=== PATIENT | male | born 1970 | race Caucasian/White ===

== ENCOUNTER 2018-12-21 08:21 | Emergency (ER) | payer OTHER, SELFPAY ==
[2018-12-21 08:34] VITALS: BP 129/92; PULSE 114; RESP 18; TEMP 36.8; O2SAT 98; BMI 25.7
--- NOTE | 2018-12-21 08:34 | ED_ITS ---
HPI - Arrhythmia/Palpitations General Chief Complaint: Arrhythmia/Palpitations Stated Complaint: POSSIBLY THE FLU AND DEHYDRATED Time Seen by Provider: 12/21/18 08:33 Source: patient Mode of arrival: ambulatory Limitations: no limitations History of Present Illness HPI narrative: Patient became ill 3+ days ago. He developed cough, and fever at that time. He works at a local [employer]. There is a clinic on site. He was sent home to rest and hydrate. He was felt to be dehydrated. He did go home and rest, he says he has been drinking lot of fluids. He also had central chest discomfort while sick and coughing 3 days ago. He has no history of CAD. The cough and fever have resolved. He returned to work today and developed chest discomfort once again. He was seen at the clinic on the [employer] site. He was noted to have a systolic blood pressures in the 80s, but a heart rate of 200 was noticed on the pulse oximetry. The provider there did not have a monitor but assumed he had PSVT. He was treated successfully with Valsalva maneuvers. The patient arrives here with a heart rate of 117. He is normotensive with no chest pain. He has no cough or dyspnea. He is on lisinopril and HCTZ for hyperten mihaela. He has no history of arrhythmia. Related Data Home Medications Medication Instructions Recorded Confirmed amitriptyline 12/21/18 lisinopril-hydrochlorothiazide 12/21/18 Allergies Allergy/AdvReac Type Severity Reaction Status Date / Time No Known Drug Allergies Allergy Verified 12/21/18 08:37 Review of Systems Review of Systems ROS Unobtainable: All systems reviewed & are unremarkable except as noted in HPI and below Constitutional Denies weakness Eyes Denies change in vision, Denies eye discharge and Denies irritation ENT Ears, Nose, Mouth, and Throat: Denies neck pain, Denies disequilibrium and Denies sore throat Cardiovascular Reports chest pain, Reports rapid heart rate, Denies pedal edema, Reports li ghtheadedness, Reports palpitations, Denies dyspnea and Denies orthopnea Respiratory Denies cough, Denies dyspnea and Denies wheezing Gastrointestinal Gastrointestinal: Denies abdominal pain, Denies change in bowel habits, Denies diarrhea, Denies nausea and Denies vomiting Musculoskeletal Denies back pain and Denies neck pain Integumentary/Breasts Denies pruritus, Denies erythema, Denies rash and Denies wounds Neurologic Denies disequilibrium and Denies weakness Endocrine Reports palpitations Allergic/Immunologic Denies wheezing PFSH Medical History HTN (hypertension) (Acute) Headache (Acute) No significant past surgical history (Acute) Social History Smoking Status: Never smoker Social History Smoking Status: Never smoker Exam Initial Vital Signs Initial Vital Signs: Vital Signs Temperature 98.3 F 12/21/18 08:34 Pulse Rate 114 H 12/21/18 08:34 Respiratory Rate 18 12/21/18 08:34 Blood Pressure 129/92 H 12/21/18 08:34 Pulse Oximetry 98 12/21/18 08:34 Const General: cooperative and well developed Nutritional Appearance: well nourished Orientation: alert, awake, oriented x3 and not confused HENMT Head: normocephalic and atraumatic Mouth: oral mucosae normal Throat: posterior oropharynx normal, tonsils normal and uvula midline Eyes General: appearance normal, both eyes and all related structures Eyelids: eyelids normal Conjunctivae: conjunctivae normal Sclera: sclerae normal Pupils: PERRL Neck Neck: No JVD Chest Chest: No crepitus and No tenderness Resp Effort & Inspection: normal respiratory effort, able to speak in complete sentences, no respiratory distress and no use of accessory muscles Auscultation: clear to auscultation bilaterally, no rales, no rhonchi and no wheezes Cardio Rate: tachycardic (Rate 117) Rhythm: regular rhythm Heart Sounds: S1 normal, S2 normal, no click, no gallops, no murmurs and no rubs Pulses: normal peripheral pulses GI Inspection: non-distended Palpation: soft, no hepatosplenomegaly, No guarding, No pulsatile mass and No tender Auscultation: normal bowel sounds Back/Spine/Pelvis Back: No CVA tenderness Cervical Spine: cervical ROM normal and No pain with cervical ROM Thoracic/Lumbar Spine: thoracic and lumbar spine normal to inspection Skin General: no rashes or lesions noted, No jaundice and No petechiae Neuro General: alert, oriented x3, gait normal and no focal motor deficits Speech: speech normal Course Orders Ordered: ED Orders 12/21/18 08:30 Influenza A and B by PCR Rapid Stat 12/21/18 08:45 Basic Metabolic Panel Stat Complete Blood Count AUTO DIFF Stat Magnesium Stat Thyroid Stimulating Hormone Stat Troponin & CK Cardiac Panel Stat 12/21/18 08:52 XR chest 1V Stat EKG-12 Lead Stat 12/21/18 09:20 Lactate (Lactic Acid) Stat Discontinued Medications Sodium Chloride (Normal Saline 0.9%) 1,000 mls @ 1,000 mls/hr IV BOLUS PRN PRN Reason: Fluid replacement Last Infusion: 12/21/18 10:19 Dose: 0 mls/hr Admin: 12/21/18 09:16 Dose: 1,000 mls/hr Vital Signs - 8 hr 12/21/18 08:34 12/21/18 09:00 12/21/18 10:00 Temperature 98.3 F Pulse Rate 114 H 114 H 105 H Respiratory Rate 18 12 18 Blood Pressure 129/92 H Blood Pressure [Left Arm] 119/89 126/83 Pulse Oximetry 98 98 97 12/21/18 10:02 Temperature Pulse Rate 102 H Respiratory Rate 12 Blood Pressure Blood Pressure [Left Arm] 126/83 Pulse Oximetry 97 MDM - Arrhythmia/Palpitations Lab Data Result diagrams: 12/21/18 08:45 12/21/18 08:45 Lab Results 12/21/18 12/21/18 12/21/18 Range/Units 08:30 08:45 08:45 WBC 7.7 (4.5-11.0) X10^3/uL RBC 5.17 (4.5-5.9) X10^6/uL Hgb 15.5 (13.5-17.5) g/dL Hct 44.6 (41-53) % MCV 86.2 (80-100) fL MCH 29.9 (26-34) PG MCHC 34.8 (30-36) % RDW 13.1 (11.6-14.8) % Plt Count 222 (150-400) X10^3/uL Neut % (Auto) 78.9 H (50-75) % Lymph % (Auto) 9.7 L (25-40) % [place] % (Auto) 10.9 (3-14) % Eos % (Auto) 0.3 L (2-4) % Baso % (Auto) 0.2 (0-2) % Neut # (Auto) 6100 (6082-2300) /uL Lymph # (Auto) 700 L (4659-2215) /uL [place] # (Auto) 800 (0-900) /uL Eos # (Auto) 0 (0-450) /uL Baso # (Auto) 0 (0-100) /uL Sodium 134 L (137-145) mmol/L Potassium 3.7 (3.4-5.1) mmol/L Chloride 98 (98-107) mmol/L Carbon Dioxide 25 (22-32) mmol/L BUN 14 (9-20) mg/dL Creatinine 1.10 (0.66-1.25) mg/dL Estimated GFR > 60.0 (>60) mL/min BUN/Creatinine Ratio 12.7 (6-22) Glucose 108 H (70-100) mg/dL Lactate (0.7-2.1) mmol/L Calcium 9.4 (8.4-10.2) mg/dL Magnesium 2.0 (1.6-2.3) mg/dL Total Creatine Kinase 73 (55-170) U/L CK-MB (CK-2) TNP CK-MB (CK-2) Rel Index TNP Troponin I < 0.012 (0.01-0.034) ng/mL TSH (0.47-4.68) uIU/mL Influenza A & B (PCR) Negative (Negative) 12/21/18 12/21/18 Range/Units 08:45 09:20 WBC (4.5-11.0) X10^3/uL RBC (4.5-5.9) X10^6/uL Hgb (13.5-17.5) g/dL Hct (41-53) % MCV (80-100) fL MCH (26-34) PG MCHC (30-36) % RDW (11.6-14.8) % Plt Count (150-400) X10^3/uL Neut % (Auto) (50-75) % Lymph % (Auto) (25-40) % [place] % (Auto) (3-14) % Eos % (Auto) (2-4) % Baso % (Auto) (0-2) % Neut # (Auto) (0139-0846) /uL Lymph # (Auto) (0987-7814) /uL [place] # (Auto) (0-900) /uL Eos # (Auto) (0-450) /uL Baso # (Auto) (0-100) /uL Sodium (137-145) mmol/L Potassium (3.4-5.1) mmol/L Chloride (98-107) mmol/L Carbon Dioxide (22-32) mmol/L BUN (9-20) mg/dL Creatinine (0.66-1.25) mg/dL Estimated GFR (>60) mL/min BUN/Creatinine Ratio (6-22) Glucose (70-100) mg/dL Lactate 0.6 L (0.7-2.1) mmol/L Calcium (8.4-10.2) mg/dL Magnesium (1.6-2.3) mg/dL Total Creatine Kinase (55-170) U/L CK-MB (CK-2) CK-MB (CK-2) Rel Index Troponin I (0.01-0.034) ng/mL TSH 3.66 (0.47-4.68) uIU/mL Influenza A & B (PCR) (Negative) Urine Dip Bedside Urine Glucose Negative Bedside Urine Bilirubin - Negative Bedside Urine Ketone - Negative Urine Specific [place] 1.010 Bedside Urine Occult Blood - Negative Bedside Urine pH 6.5 Bedside Urine Protein +/- 15 Bedside Urine Urobilinogen - Negative Bedside Urine Nitrite - Negative Bedside Urine Leukocytes - Negative Esterase Imaging Data Chest x-ray: Radiologist's impression: 2 Diagnostics DATE TYPE STATUS AUTHOR Hx 12/21/18 08:52 AlisiaAnayeli Alvarezvasile Driscoll 48, M0 1970 DEP ER, ED.LOC - Main ED 182.88cm 86.183kg BMI: 25.8kg/m? Arrhythmia/Palpitations Search Chart ONSET Today 10:02 Document Auto-Saved Anayeli Pinzonvasile Driscoll 48 M [address] [address] XRay Report Signed Patient: Jesus Pinzon LMR#: [id number] : 1970Acct:[id number] Age/Sex: 48 / MDate of Service: 12/21/18 Loc: ED Accession Number: [id number] Procedure: XR chest 1V Ordering Provider: Chuy Varela M.D. PROCEDURE: XR CHEST 1V INDICATIONS: Palpitations TECHNIQUE: One view of the chest was acquired. COMPARISON: [facility], , CHEST 1VW (PORTABLE), 01/24/2011, 7:57. FINDINGS: Surgical changes and devices: None. Lungs and pleura: Trace airspace opacities are present within the right midlung. The lungs are otherwise clear. Mediastinum: Mediastinal contours appear normal. Heart size is normal. Bones and chest wall: No suspicious bony lesions. Overlying soft tissues appear unremarkable. IMPRESSION: Trace right midlung airspace opacities which may represent aspiration/infection. Short interval followup is recommended to ensure resolution of this finding and exclude underlying pulmonary pathology. Dictated by: Roxana Crump M.D. on 12/21/2018 at 9:23 Approved by: Roxana Crump M.D. on 12/21/2018 at 9:24 ECG Data Attestation: I personally reviewed and interpreted this ECG as follows: (Sinus tachycardia [address] T wave changes. No ectopy. Normal intervals.) [facility] Narrative Medical decision making narrative: The patient received 1 liter IV fluids. His heart rate dropped to 100. He is normotensive. He is asymptomatic he has been ill, no suggestion of ongoing acute illness. The event this morning was possibly PSVT. He is referred back to his doctor with recommendation of a referral to Cardiology. Discharge Plan Departure Patient Disposition: Home Clinical Impression: Palpitations Discharge Date/Time: 12/21/18 10:21 Interventions: ED Discharge Assessment Last Done: 12/21/18 10:20 Instructions: Arrhythmias Activity Restrictions/Additional Instructions: Rest at home today, be sure your are well-hydrated. If you have an event like occurred earlier today, go to her nearest ER. Return to this ER if necessary. I think you have situation called supraventricular tachycardia(SVT). Contact your doctor, I would recommend a cardiology consult. Prescriptions: No Action lisinopril-hydrochlorothiazide 10-12.5 mg tablet RF: 0 amitriptyline 10 mg tablet RF: 0 Referrals: Skylar Jaime MD [Primary Care Provider] -
--- NOTE | 2018-12-21 08:52 | DI.RAD.S_ITS ---
PROCEDURE: XR CHEST 1V INDICATIONS: Palpitations TECHNIQUE: One view of the chest was acquired. COMPARISON: [facility], , CHEST 1VW (PORTABLE), 01/24/2011, 7:57. FINDINGS: Surgical changes and devices: None. Lungs and pleura: Trace airspace opacities are present within the right midlung. The lungs are otherwise clear. Mediastinum: Mediastinal contours appear normal. Heart size is normal. Bones and chest wall: No suspicious bony lesions. Overlying soft tissues appear unremarkable. IMPRESSION: Trace right midlung airspace opacities which may represent aspiration/infection. Short interval followup is recommended to ensure resolution of this finding and exclude underlying pulmonary pathology. Dictated by: Roxana Crump M.D. on 12/21/2018 at 9:23 Approved by: Roxana Crump M.D. on 12/21/2018 at 9:24
[2018-12-21 09:00] VITALS: BP 119/89; PULSE 114; RESP 12; O2SAT 98
[2018-12-21 09:11] LABS: Add Manual Diff / Slide Review NO; Basophils Absolute Auto 0 /uL (0-100); Basophils Percent Auto 0.2 % (0-2); Eosinophils Absolute Auto 0 /uL (0-450); Eosinophils Percent Auto 0.3 % (2-4); Hematocrit 44.6 % (41-53); Hemoglobin 15.5 g/dL (13.5-17.5); Lymphocytes Absolute Auto 700 /uL (1100-4500); Lymphocytes Percent Auto 9.7 % (25-40); Mean Corpuscular HGB Conc 34.8 % (30-36); Mean Corpuscular Hemoglobin 29.9 PG (26-34); Mean Corpuscular Volume 86.2 fL (80-100); Monocytes Absolute Auto 800 /uL (0-900); Monocytes Percent Auto 10.9 % (3-14); Neutrophils Absolute Auto 6100 /uL (1500-7000); Neutrophils Percent Auto 78.9 % (50-75); Platelet Count 222 X10^3/uL (150-400); Red Blood Cell Count 5.17 X10^6/uL (4.5-5.9); Red Cell Distribution Width 13.1 % (11.6-14.8); White Blood Cell Count 7.7 X10^3/uL (4.5-11.0)
[2018-12-21 09:12] LABS: Influenza A and B by PCR Rapid Negative (Negative)
[2018-12-21] MEDS: SODIUM CHLORIDE 0.9% 1,000 ML 1000 ML IV (09:16)
[2018-12-21 09:17] LABS: BUN Creatinine Ratio 12.7 (6-22); Blood Urea Nitrogen 14 mg/dL (9-20); Calcium 9.4 mg/dL (8.4-10.2); Carbon Dioxide 25 mmol/L (22-32); Chloride 98 mmol/L (98-107); Creatine Kinase 73 U/L (55-170); Estimated Glomerular Filt Rate > 60.0 mL/min (>60); Glucose 108 mg/dL (70-100); HEMOLYSIS < 15 (0-50); Potassium 3.7 mmol/L (3.4-5.1); Sodium 134 mmol/L (137-145)
[2018-12-21 09:29] LABS: Troponin I < 0.012 ng/mL (0.01-0.034)
[2018-12-21 09:36] LABS: Lactate (Lactic Acid) 0.6 mmol/L (0.7-2.1)
[2018-12-21 09:48] LABS: Thyroid Stimulating Hormone 3.66 uIU/mL (0.47-4.68)
--- NOTE | 2018-12-21 09:54 | PC.NURSE ---
Pt noticed tachycardia, went to medical office, found to have HR 220, they assisted in valsalva manuver which decreased heart rate to 120. Pt denies shortness of breath, chest pain, diaphorisis, nausea / vomiting. Denies recent use of stimulants besides normal am coffee. no h/o thyroid issues. Currently pain free. States usual resting HR 60-80.
[2018-12-21 10:00] VITALS: BP 126/83; PULSE 105; RESP 18; O2SAT 97
[2018-12-21 10:02] VITALS: BP 126/83; PULSE 102; RESP 12; O2SAT 97
== END 2018-12-21 10:21 | disposition home or self-care (01) ==
PROVIDERS: Emergency Provider Emergency Medicine; Family Provider Family Medicine; PCP Family Medicine
DX: R00.2 Palpitations (principal)
CPT/HCPCS: 36415; 36591; 71045; 80048; 81003; 82550; 83605; 83735; 84443; 84484; 85025; 87400; 93005; 93010; 96360; 99284; 99285

== ENCOUNTER → 2021-01-06 15:16 | Outpatient (CLI) | payer OTHER, SELFPAY ==
[2021-01-06] MEDS: COVID-19 VACC #1, MRNA(MOD) 100 MCG/0.5 ML VIAL IM (15:24)
== END ==
PROVIDERS: Family Provider Family Medicine; PCP Family Medicine; Visit Provider Internal Medicine
DX: Z23 Encounter for immunization (principal)
CPT/HCPCS: 0011A; 91301

== ENCOUNTER → 2021-02-02 07:34 | Outpatient (CLI) | payer OTHER, SELFPAY ==
[2021-02-02] MEDS: COVID-19 VACC #2, MRNA(MOD) 100 MCG/0.5 ML VIAL IM (07:43)
== END ==
PROVIDERS: Family Provider Family Medicine; PCP Family Medicine; Visit Provider Internal Medicine
DX: Z23 Encounter for immunization (principal)
CPT/HCPCS: 0012A; 91301